=== PATIENT | female | born 1980 | race Caucasian/White ===

== ENCOUNTER 2019-01-22 08:04 | Inpatient (IN) ==
--- NOTE | 2019-01-16 08:54 | PAT Medication Instructions ---
Medication Instructions Date of Service January 16, 2019 Home Medications PNV cmb#95-ferrous fumarate-FA [] 1 tab PO DAILY DO NOT take the morning of surgery PNV cmb#95-ferrous fumarate-FA [] 1 tab PO DAILY Other Notes If you have any questions please call us at [phone] or [phone] or [phone] or [phone]
--- NOTE | 2019-01-16 14:13 | Anesthesiology Consultation ---
Date of Service January 16, 2019 Assessment & Plan (1) Encounter for pre-operative examination: No known hx blood transfusion. Per OB, no labs to be drawn at [facility]; ordered for AM day of c/s. Chart Review Chart Review: Acceptable Risk for Surgery (pending labs AM day of c/s) and Patient seen in Pre Admission Testing Teaching & Discussion Pre-Anesthesia Teaching/Discussion Notes: Instructed NPO after midnight before surgery,except medications with 15 cc of water. Medication instructions provided according to the [facility] guidelines. History Surgery Operation Date: 01/22/19 09:05 Proposed Procedures p Repeat Section Delivery - Stewart Qureshi MD Height/Weight Height: 5 ft 3 in Weight: 110.1 kg Allergies Allergy/AdvReac Type Severity Reaction Status Date / Time No Known Allergies Verified 01/09/19 13:25 Medications Home Medications Medication Instructions Recorded Confirmed Last Taken PNV cmb#95-ferrous fumarate-FA 1 tab PO DAILY #0 08/31/09 01/09/19 11/20/18 20:00 [] Past Medical History Medical History Obesity Exercise / Class Metabolic Activity II 4-5 Yardwork/Stairs/Walk up hill Past Surgical History Surgical History History of section 2009= 2/2 FAILURE TO PROGRESS= DOSED EPIDURAL (GOOD PAIN CONTROL) Past Anesthesia History No Hx of Anesthesia Complications and No Family Hx of Anesthesia Complications History of PONV No Hx of PONV and Hx of Motion Sickness Social History Smoking Status: Never smoker Do You Dip or Chew Tobacco: No Hx Alcohol Use: No Hx Substance Use: No Review of Systems Reflux ( related). Patient denies chest pain, shortness of breath, dyspnea on exertion, cough, wheezing, palpitations. Physical Exam Vital Signs VITALS BP 125/84 P 101 TEMP 98.3 SP02 95%RA RESP 16 PHYSICAL Full neck and c-spine range of motion. Full TMJ range of motion. TMD 3 finger breaths Mallampati Score 3 Dentition: intact Lungs: clear throughout to auscultation Cardiac: regular rate and rhythm, no murmurs noted Spine: normal Extremities: no edema
--- NOTE | 2019-01-22 01:06 | History and Physical Report ---
DATE OF ADMISSION: 01/21/2019 The patient is going for repeat . HISTORY OF PRESENT ILLNESS: The patient is a 38-year-old female para 1-0-0-1, EDC 01/25/2019 at 39 weeks and 4 days, admitted for an elective repeat section. The patient is refusing trial of labor after . PAST MEDICAL HISTORY: Significant for a primary section in 2009. Medical history is significant for gestational diabetes. SOCIAL HISTORY: Denies smoking, alcohol or drug use. CURRENT MEDICATIONS: vitamins. ALLERGIES: No known allergies. FAMILY HISTORY: Noncontributory. REVIEW OF SYSTEMS: Negative. PHYSICAL EXAMINATION: HEENT: Within normal limits. LUNGS: Clear to auscultation COR: Regular rate and rhythm. ABDOMEN: Soft and nontender. EXTREMITIES: Within normal limits. NEUROLOGIC: Intact. LABORATORY DATA: Group B Streptococcus is negative. ASSESSMENT: Term elective repeat section, gestational diabetes, diet controlled.
[~2019-01-22 08:04] MED LIST: CEFAZOLIN 3000MG 65 ML IV SCH; CITRIC ACID/SODIUM CITRATE 15 ML UDC PO SCH
[2019-01-22] MEDS ORDERED: LACTATED RINGER'S 1,000 ML IV SCH ×3 (08:30→13:00)
--- NOTE | 2019-01-22 09:18 | History & Physical Bridge Note ---
Date of Service January 22, 2019 History & Physical Bridge Note I have examined the patient, reviewed the History & Physical and in the interval since the performance of the History & Physical I have noted the following changes of clinical significance: no changes noted
[2019-01-22 09:22] LABS: Basophils # (auto) 0.03 K/uL (0-0.2); Basophils % (auto) 0.3 %; Eosinophils # (auto) 0.12 K/uL (0-0.5); Eosinophils % (auto) 1.1 %; Hematocrit (blood only) 34.3 % (37-47); Hemoglobin 11.3 g/dL (12.0-16.0); Immature Granulocytes # (auto) 0.06 K/uL (0.00-0.02); Immature Granulocytes % (auto) 0.5 %; Lymphocytes # (auto) 1.88 K/uL (1.2-3.4); Lymphocytes % (auto) 16.8 %; Mean Corpuscular Volume 81.3 fL (80-100); Mean Platelet Volume 12.2 fL (7.4-10.4); Monocytes # (auto) 0.58 K/uL (0.11-0.59); Monocytes % (auto) 5.2 %; Neutrophils # (auto) 8.49 K/uL (1.4-6.5); Neutrophils % (auto) 76.1 %; Platelet Count 186 K/uL (130-400); RDW Coefficient of Variation 14.3 % (11.5-14.5); RDW Standard Deviation 41.9 fL (36.4-46.3); Red Blood Count 4.22 M/uL (4.2-5.4); White Blood Count 11.16 K/uL (4.8-10.8)
[2019-01-22 09:29] LABS: Mean Corpuscular Hgb Conc 32.9 g/dL (32-36)
[2019-01-22] MEDS ORDERED: MoRPHine SULFATE PF 1 MG/ML 10 ML AMP/VIAL ONE (11:35)
[2019-01-22] MEDS ORDERED: fentaNYL citrate 100 MCG/2 ML VIAL ONE (11:35)
[2019-01-22] MEDS ORDERED: OXYTOCIN 10 UNITS/ML VIAL ONE ×2 (11:37→12:28)
[2019-01-22] MEDS ORDERED: PHENYLEPHRINE HCL 10 MG/ML VIAL ONE ×2 (12:03→12:21)
[2019-01-22] MEDS ORDERED: ONDANSETRON INJ 2 MG/ML 2 ML VIAL ONE (12:05)
[2019-01-22] MEDS ORDERED: NALOXONE HCL 0.08 MG in SYRINGE 1.8 ML IV PRN (12:14)
[2019-01-22] MEDS ORDERED: HYDROmorphone INJ 0.5 MG/0.5 ML SYR IV PRN (12:14)
[2019-01-22] MEDS ORDERED: DiphenhydrAMINE HCL 50 MG/ML VIAL IV PRN (12:14)
[2019-01-22] MEDS ORDERED: MEPERIDINE HCL 25 MG/ML CARP IV PRN (12:14)
[2019-01-22] MEDS ORDERED: ePHEDrine sulfate 50 MG/ML AMP IV PRN (12:14)
[2019-01-22] MEDS ORDERED: NALOXONE HCL 0.4 MG/1 ML VIAL/CARP IV PRN (12:14)
[2019-01-22] MEDS ORDERED: ONDANSETRON INJ 2 MG/ML 2 ML VIAL IV PRN (12:14)
[2019-01-22] MEDS ORDERED: NALOXONE HCL 1 MG in SODIUM CHLORIDE 0.9% 1000ML 1,000 ML IV PRN (12:14)
[2019-01-22] MEDS ORDERED: LACTATED RINGER'S 500 ML IV PRN (12:14)
[2019-01-22] MEDS ORDERED: MoRPHine SULFATE PF 1 MG/ML 10 ML AMP/VIAL INT SPINAL ONE (12:14)
[2019-01-22] MEDS ORDERED: KETOROLAC 30 MG/ML VIAL IV PRN (12:14)
[2019-01-22] MEDS ORDERED: NALBUPHINE HCL INJ 10 MG/ML AMP IV PRN (12:14)
[2019-01-22] MEDS ORDERED: SODIUM CHLORIDE 0.9% 1000ML 1,000 ML IV SCH (12:15)
[2019-01-22] MEDS ORDERED: NO NARCOTICS OR SEDATIVES SCH (12:15)
--- NOTE | 2019-01-22 12:45 | Post Operative Brief Note ---
Immediate Post Op Note v1 Date of Surgery January 22, 2019 Pre & Post Diagnosis Operation Date: 01/22/19 10:05 Pre-Op Diagnosis: Term elective repeat section, gestational diabetes, diet controlled, requests bilateral tubal ligation Post-Op Diagnosis: same as preop Procedure Operation Date: 01/22/19 10:05 Actual Procedures p Section in LD with delivery live male child at 1215 - Stewart Qureshi MD s Post Tubal Ligation Labor & Deliv - Stewart Qureshi MD Surgeon Stewrat Qureshi MD Computer Support Analyst Candy Matta Estimated Blood Loss 400 Findings Consistent with Post-Op Diagnosis live male, Apgars and birthweight pending Fluids 2400 ml Specimens placenta Drains Johnson Catheter (applied after anesthesia, clear yellow urine return) Anesthesia Type Spinal Complications none Disposition Accompanied Patient To Recovery: Yes Disposition: L&D Overlapping Procedure I was present for: the critical portions of procedure. I was immediately available: during the entire case. Back up surgeon: used during listed procedure.
[2019-01-22] MEDS ORDERED: DIPHTHERIA/TETANUS/PERTUSSIS 0.5 ML SYR/VIAL IM ONE (12:52)
[2019-01-22] MEDS ORDERED: MAGNESIUM HYDROXIDE SUSP 30 ML UDC PO PRN (12:52)
[2019-01-22] MEDS ORDERED: BENZOCAINE 20% AER SPR 82.5 GM CAN EXT PRN (12:52)
[2019-01-22] MEDS ORDERED: SENNA 8.6 MG TAB PO PRN (12:52)
[2019-01-22] MEDS ORDERED: SUPERCREAM 0.870% 15 GM JAR EXT PRN (12:52)
[2019-01-22] MEDS ORDERED: HYDROCORTISONE ACETATE 25 MG SUPP PR PRN (12:52)
--- NOTE | 2019-01-22 13:07 | Anesthesiology Progress Note ---
Date of Service January 22, 2019 Anesthesia Post Procedure Vital Signs Vital Signs: Temp Pulse Resp BP 01/22/19 13:02 76 102/55 L 01/22/19 12:52 76 112/60 01/22/19 11:00 82 20 153/89 H 01/22/19 10:30 20 01/22/19 10:00 20 01/22/19 09:30 20 01/22/19 09:25 20 01/22/19 09:15 36.8 C 83 20 142/90 H Transfer of Care Handoff Completed per policy Notes Mental Status: alert / awake / arousable Patient Amnestic to Procedure: Yes Nausea / Vomiting: adequately controlled Pain: adequately controlled Airway Patency, RR, SpO2: stable & adequate BP & HR: stable & adequate Hydration State: stable & adequate Neuraxial Anesthesia: was administered and sensory block is resolving Anesthetic Complications: no major complications apparent and Pt Satisfied with anesthetic care
[2019-01-22] MEDS: OXYTOCIN 20 UNITS in LACTATED RINGER'S 1,000 ML IV SCH ×2 (13:46→22:06)
[2019-01-22] MEDS: SIMETHICONE 80 MG CHEW PO SCH ×3 (14:13→21:05)
[2019-01-22] MEDS: DOCUSATE SODIUM 100 MG CAP PO SCH (21:05)
--- NOTE | 2019-01-23 01:26 | Operative Report ---
DATE OF OPERATION: 01/22/2019 PREOPERATIVE DIAGNOSES: Term elective repeat section and voluntary sterilization. POSTOPERATIVE DIAGNOSES: Term elective repeat section and voluntary sterilization. PROCEDURES: Repeat section, low segment transverse and bilateral tubal ligation with Filshie clips. SURGEON: Stewart Qureshi MD ASSISTANTS: Malvin Odell MD and Zoila Carrillo PA-C ANESTHESIA: Spinal. COMPLICATIONS: None. FINDINGS: Live male, Apgars 8 and 9. weight 7 pounds 14 ounces. CLINICAL HISTORY: The patient is a 38-year-old female para 1-0-0-1 at 39 weeks and 4 days, admitted for an elective repeat section and voluntary sterilization. The patient was identified prior to the start of the procedure, timeout was called and antibiotics were given preoperatively. DESCRIPTION OF PROCEDURE: After satisfactory spinal anesthesia, the patient was prepped and draped in usual sterile fashion. A low Pfannenstiel incision through a prior scar was then made and carried down into the abdominal cavity in successive layers without difficulty. Upon entering into the peritoneal cavity, pickups with teeth and Metzenbaums were then used to develop a bladder flap. Bladder blade was entered. A low segment transverse incision over the lower uterine segment was made and the incision was widened in the AP diameter and nicked with an Allis clamp. Clear fluid was noted. The infant was then delivered with the aid of fundal pressure delivering a live male. The cord was delayed cord clamping. After the cord was clamped and cut, baby was delivered. Apgars were 8 and 9, weight 7 pounds 14 ounces. Cord blood was then obtained. Placenta was then delivered spontaneously and intact. Uterus was exteriorized. Ring forceps were then placed on both angles of the inferior margin. Another ring was used to dilate the cervix. Uterus closed in a single layer closure in a continuous interlocking fashion, closing the uterus. Tubes and ovaries bilaterally were found to be within normal limits. Two Filshie clips were then applied to each tube serially with Filshie clip applicator. At the end of this procedure, no active bleeding was noted. The contents of the pelvic cavity were then irrigated to clear. Uterus was then placed back into the normal anatomical position. The inspection of the lower uterine segment was accomplished without any evidence of any active bleeding. Tubes were inspected as well. The fascia was then reapproximated from both ends using 0 Vicryl suture in a continuous running fashion. Subcuticular space was irrigated. Bleeders were cauterized. Subcuticular space was closed with 3-0 plain suture and the skin was reapproximated with 4-0 Monocryl suture. Steri-Strips were then applied to the wound. Clear urine was noted from the Johnson. Estimated blood loss was 400 mL. The final sponge, needle and instrument count were found to be correct. The patient was then placed upon a stretcher and taken to Recovery Room in a stable condition. I attest to the content of the Intraoperative Record and any orders documented therein. Any exception s are noted below.
[2019-01-23] MEDS ORDERED: CEFAZOLIN 3000MG 65 ML IV SCH (06:00)
[2019-01-23] MEDS ORDERED: DC INTRASPINAL MORPHINE SCH (06:14)
[2019-01-23] MEDS ORDERED: KETOROLAC 30 MG/ML VIAL IV PRN (06:15)
[2019-01-23] MEDS ORDERED: DiphenhydrAMINE HCL 50 MG/ML VIAL IV PRN (06:15)
[2019-01-23] MEDS ORDERED: ONDANSETRON INJ 2 MG/ML 2 ML VIAL IV PRN (06:15)
[2019-01-23] MEDS ORDERED: PROMETHAZINE HCL 25 MG in SODIUM CHLORIDE 0.9% 50 ML IV PRN (06:15)
[2019-01-23 06:58] LABS: Basophils # (auto) 0.02 K/uL (0-0.2); Basophils % (auto) 0.1 %; Eosinophils % (auto) 1.2 %; Hematocrit (blood only) 32.4 % (37-47); Hemoglobin 10.6 g/dL (12.0-16.0); Immature Granulocytes # (auto) 0.04 K/uL (0.00-0.02); Immature Granulocytes % (auto) 0.2 %; Lymphocytes # (auto) 1.76 K/uL (1.2-3.4); Lymphocytes % (auto) 10.3 %; Mean Corpuscular Hgb Conc 32.7 g/dL (32-36); Mean Corpuscular Volume 80.8 fL (80-100); Mean Platelet Volume 11.6 fL (7.4-10.4); Monocytes # (auto) 1.16 K/uL (0.11-0.59); Monocytes % (auto) 6.8 %; Neutrophils # (auto) 13.95 K/uL (1.4-6.5); Neutrophils % (auto) 81.4 %; Platelet Count 143 K/uL (130-400); RDW Coefficient of Variation 14.2 % (11.5-14.5); RDW Standard Deviation 41.7 fL (36.4-46.3); Red Blood Count 4.01 M/uL (4.2-5.4); White Blood Count 17.13 K/uL (4.8-10.8)
[2019-01-23] MEDS: SIMETHICONE 80 MG CHEW PO SCH ×4 (07:38→20:00)
[2019-01-23] MEDS: PRENATAL VITAMIN 1 TAB PO SCH (07:38)
[2019-01-23] MEDS: FERROUS SULFATE 325 MG TAB PO SCH (07:38)
[2019-01-23] MEDS: DOCUSATE SODIUM 100 MG CAP PO SCH ×2 (07:38→20:00)
--- NOTE | 2019-01-23 08:17 | Obstetrical Progress Note ---
Date of Service January 23, 2019 Physical Exam Physical Exam: abdomen soft and non tender passing flatus incision is clean and dry no calf tenderness ambulating well hgb 10.6 Results & Data Vital Signs (Past 12 Hours) Vital Signs Temp Pulse Resp BP Pulse Ox 01/23/19 06:15 18 95 01/23/19 05:00 18 95 01/23/19 04:00 18 95 01/23/19 03:45 37 C 84 18 128/77 95 01/23/19 02:00 18 97 01/23/19 01:00 18 96 01/23/19 00:15 18 97 01/22/19 23:10 37.4 C 87 18 121/75 97 01/22/19 22:10 18 96 01/22/19 21:15 18 98 01/22/19 20:25 18 95
[2019-01-23] MEDS: IBUPROFEN 600 MG TAB PO PRN ×2 (09:18→23:53)
[2019-01-23] MEDS: OXYCODONE/ACETAMINOPHEN 5mg/325mg TAB PO PRN ×3 (12:31→23:54)
[2019-01-23] MEDS ORDERED: BISACODYL 5 MG TABEC PO SCH (20:00)
[2019-01-24] MEDS: OXYCODONE/ACETAMINOPHEN 5mg/325mg TAB PO PRN ×2 (04:39→09:11)
[2019-01-24] MEDS: IBUPROFEN 600 MG TAB PO PRN ×2 (04:39→09:12)
[2019-01-24] MEDS: PRENATAL VITAMIN 1 TAB PO SCH (07:29)
[2019-01-24] MEDS: SIMETHICONE 80 MG CHEW PO SCH (07:29)
[2019-01-24] MEDS: FERROUS SULFATE 325 MG TAB PO SCH (07:29)
[2019-01-24] MEDS: DOCUSATE SODIUM 100 MG CAP PO SCH (07:29)
[2019-01-24 07:42] LABS: Hematocrit (blood only) 29.4 % (37-47); Hemoglobin 9.6 g/dL (12.0-16.0)
--- NOTE | 2019-01-24 08:21 | Obstetrical Progress Note ---
Date of Service January 24, 2019 POD #2 Pt doing well disch home with instructions Subjective Ambulation: ambulating normally Voiding: no voiding problems Passing Gas:: Yes Diet Tolerance:: clear liquids Lochia:: Small Feeding Type:: breast feeding Review of Systems All systems reviewed & are unremarkable except as noted in HPI & below Physical Exam Constitutional WD/WN, vitals as above well developed and well nourished Eyes PERRL, conjunctivae normal, anicteric sclerae ENMT external ear and nose normal, oropharynx normal Neck trachea midline, no thyromegaly Respiratory normal respiratory effort, lungs clear to auscultation Cardiovascular RRR, no murmur, no edema Chest (Breasts) normal inspection/palpation of breasts Gastrointestinal (Abdomen) normal bowel sounds, soft, nontender, no hepatosplenomegaly Musculoskeletal no cyanosis or clubbing, extremities motor strength 5/5 Skin no rashes, warm and dry + incision (Clean,dry and intact) Neurologic patellar DTR's 2+ bilat, sensation intact Psychiatric A+Ox3, euthymic affect Genitourinary normal external appearance Lymphatic no cervical or axillary lymphadenopathy Results & Data Vital Signs (Past 12 Hours) Vital Signs Temp Pulse Resp BP Pulse Ox 01/23/19 23:20 37 C 91 H 18 146/87 H 95
[2019-01-24 09:15] VITALS: BP 119/77; PULSE 80; TEMP 97.9; O2SAT 97
[2019-01-24] MEDS ORDERED: BISACODYL 10 MG SUPP PR PRN (12:53)
--- NOTE | 2019-02-06 06:34 | Discharge Summary ---
REASON FOR ADMISSION: The patient was admitted on 01/22/2019. She is a 38-year-old female para 1-0-0-1, EDC 01/25/2019 at 39 weeks and 5 days, admitted for elective repeat section and voluntary sterilization procedure. HOSPITAL COURSE: She underwent a repeat , delivering a live male. Apgars were 8 and 9. weight was 7 pounds 14 ounces. Hospital course was unremarkable. The patient was discharged home in stable condition on 01/24/2019. Homegoing instructions were given. Condition on discharge is stable. Regular diet on discharge. Motrin for pain to go home and Percocet for pain to go home. Followup will be in 1 week in the office for incision check. Condition on discharge is stable. Regular diet on discharge is ordered.
== END 2019-01-24 12:28 | disposition home or self-care (01) | DRG 785 ==
LOC: 4S2 08:04 → EDSTATUS 08:50
PROC: M.PPTLD (2019-01-22 10:05)